=== PATIENT | female | born 1970 | race Caucasian/White ===

== ENCOUNTER 2019-01-09 09:18 | Emergency (ER) | payer OTHER ==
--- NOTE | 2019-01-09 10:29 | EDM.PDOC ---
ED HPI GENERAL MEDICAL PROBLEM - General Chief Complaint: Abdominal Pain Stated Complaint: LOWER LEFT SIDE ABD PAIN Time Seen by Provider: 01/09/19 11:00 Source of Information: Reports: Patient - History of Present Illness INITIAL COMMENTS - FREE TEXT/NARRATIVE: +48 years old female patient presented with a chief complaint of left lower quadrant abdominal pain since last Saturday. Constant. No radiation. Cramping. Waxing and waning. Associated with nausea but no vomiting. Denies any fever. Denies any diarrhea or constipation. She has some frequency and urgency. No burning with urination. Denies any blood in the urine or stool. Denies any vaginal discharge or bleeding. Denies any chest pain shortness breath. Nothing makes the pain better or worse. Left Lower Abdominal Pain Score (Numeric/FACES): 8 - Related Data Allergies Allergy/AdvReac Type Severity Reaction Status Date / Time Sulfa (Sulfonamide Allergy Rash Verified 01/09/19 10:16 Antibiotics) Home Meds: Home Meds Levothyroxine [Synthroid] 1 tab PO DAILY 01/09/19 [History] Past Medical History Cardiovascular History: Reports: Hypertension Gastrointestinal History: Reports: GERD Psychiatric History: Reports: Anxiety Endocrine/Metabolic History: Reports: Hypothyroidism - Past Surgical History HEENT Surgical History: Reports: Tonsillectomy Female Surgical History: Reports: Section Social & Family History - Tobacco Use Smoking Status *Q: Never Smoker - Recreational Drug Use Recreational Drug Use: No ED ROS GENERAL - Review of Systems Review Of Systems: ROS reveals no pertinent complaints other than HPI. ED EXAM, RENAL/ - Physical Exam Exam: See Below Exam Limited By: No Limitations General Appearance: Alert, No Apparent Distress Head: Atraumatic Neck: Normal Inspection, Supple Respiratory/Chest: No Respiratory Distress Cardiovascular: Normal Peripheral Pulses, Regular Rate, Rhythm, No Edema, No Murmur GI/Abdominal: Normal Bowel Sounds, No Organomegaly, No Distention, Other ( tenderness of the suprapubic and left lower quadrant area. No guarding no rebound.) Course - Vital Signs Last Recorded V/S: Last Vital Signs Temp 36.8 C 01/09/19 11:34 Pulse 95 01/09/19 13:37 Resp 16 01/09/19 12:50 BP 152/98 H 01/09/19 13:37 Pulse Ox 99 01/09/19 13:37 - Orders/Labs/Meds Orders: Active Orders 24 hr Category Date Time Status Cardiac Monitoring [RC] .As Directed Care 01/09/19 10:51 Active Pelvis Non OB Comp [US] Stat Exams 01/09/19 13:50 Taken Sodium Chloride 0.9% [Normal Saline] 75 ml Med 01/09/19 12:15 Active IV ASDIRECTED Medication Orders Sodium Chloride (Normal Saline) 75 mls @ 3 mls/sec IV ASDIRECTED MYRANDA Last Admin: 01/09/19 12:26 Dose: 3 mls/sec Labs: Laboratory Tests 01/09/19 01/09/19 01/09/19 Range/Units 10:31 10:54 11:04 WBC (4.5-11.0) K/uL RBC (3.30-5.50) M/uL Hgb (12.0-15.0) g/dL Hct (36.0-48.0) % MCV (80-98) fL MCH (27-31) pg MCHC (32-36) % Plt Count (150-400) K/uL Neut % (Auto) (36-66) % Lymph % (Auto) (24-44) % Collin % (Auto) (2-6) % Eos % (Auto) (2-4) % Baso % (Auto) (0-1) % Sodium 140 (140-148) mmol/L Potassium 4.3 (3.6-5.2) mmol/L Chloride 101 (100-108) mmol/L Carbon Dioxide 29 (21-32) mmol/L Anion Gap 10.1 (5.0-14.0) mmol/L BUN 13 (7-18) mg/dL Creatinine 0.8 (0.6-1.0) mg/dL Est Cr Clr Drug Dosing 73.46 mL/min Estimated GFR (MDRD) > 60 (>60) Glucose 114 H (74-106) mg/dL Calcium 9.4 (8.5-10.1) mg/dL Total Bilirubin 1.4 H (0.2-1.0) mg/dL AST 21 (15-37) U/L ALT 25 (12-78) U/L Alkaline Phosphatase 86 (46-116) U/L C-Reactive Protein 1.23 H (0.0-0.3) mg/dL Total Protein 7.8 (6.4-8.2) g/dL Albumin 4.1 (3.4-5.0) g/dL Globulin 3.7 H (2.3-3.5) g/dL Albumin/Globulin Ratio 1.1 L (1.2-2.2) Lipase (73-393) U/L Urine Color Yellow Urine Appearance Slightly cloudy Urine pH 8.0 (4.5-8.0) Ur Specific [place] 1.015 (1.008-1.030) Urine Protein Negative (NEGATIVE) mg/dL Urine Glucose (UA) Normal (NEGATIVE) mg/dL Urine Ketones Negative (NEGATIVE) mg/dL Urine Occult Blood Negative (NEGATIVE) Urine Nitrite Negative (NEGATIVE) Urine Bilirubin Negative (NEGATIVE) Urine Urobilinogen Normal (NORMAL) mg/dL Ur Leukocyte Esterase Negative (NEGATIVE) Urine RBC Not seen (0-5) Urine WBC 0-5 (0-5) Ur Epithelial Cells Few Amorphous Sediment Not seen Urine Bacteria Few Urine Mucus Many Urine HCG, Qual Negative 01/09/19 01/09/19 Range/Units 11:04 11:04 WBC 10.8 (4.5-11.0) K/uL RBC 4.81 (3.30-5.50) M/uL Hgb 14.1 (12.0-15.0) g/dL Hct 41.2 (36.0-48.0) % MCV 86 (80-98) fL MCH 29 (27-31) pg MCHC 34 (32-36) % Plt Count 197 (150-400) K/uL Neut % (Auto) 80 H (36-66) % Lymph % (Auto) 10 L (24-44) % Collin % (Auto) 9 H (2-6) % Eos % (Auto) 0 L (2-4) % Baso % (Auto) 0 (0-1) % Sodium (140-148) mmol/L Potassium (3.6-5.2) mmol/L Chloride (100-108) mmol/L Carbon Dioxide (21-32) mmol/L Anion Gap (5.0-14.0) mmol/L BUN (7-18) mg/dL Creatinine (0.6-1.0) mg/dL Est Cr Clr Drug Dosing mL/min Estimated GFR (MDRD) (>60) Glucose (74-106) mg/dL Calcium (8.5-10.1) mg/dL Total Bilirubin (0.2-1.0) mg/dL AST (15-37) U/L ALT (12-78) U/L Alkaline Phosphatase (46-116) U/L C-Reactive Protein (0.0-0.3) mg/dL Total Protein (6.4-8.2) g/dL Albumin (3.4-5.0) g/dL Globulin (2.3-3.5) g/dL Albumin/Globulin Ratio (1.2-2.2) Lipase 131 (73-393) U/L Urine Color Urine Appearance Urine pH (4.5-8.0) Ur Specific [place] (1.008-1.030) Urine Protein (NEGATIVE) mg/dL Urine Glucose (UA) (NEGATIVE) mg/dL Urine Ketones (NEGATIVE) mg/dL Urine Occult Blood (NEGATIVE) Urine Nitrite (NEGATIVE) Urine Bilirubin (NEGATIVE) Urine Urobilinogen (NORMAL) mg/dL Ur Leukocyte Esterase (NEGATIVE) Urine RBC (0-5) Urine WBC (0-5) Ur Epithelial Cells Amorphous Sediment Urine Bacteria Urine Mucus Urine HCG, Qual Meds: Medications Generic Name Dose Route Start Last Admin Trade Name Freq PRN Reason Stop Dose Admin Sodium Chloride 75 mls @ 3 mls/sec 01/09/19 12:15 01/09/19 12:26 Normal Saline IV 3 mls/sec ASDIRECTED MYRANDA Administration Discontinued Medications Generic Name Dose Route Start Last Admin Trade Name Freq PRN Reason Stop Dose Admin Sodium Chloride 1,000 mls @ 1,000 mls/hr 01/09/19 10:51 01/09/19 11:48 Normal Saline IV 01/09/19 11:50 1,000 mls/hr .BOLUS ONE Administration Iopamidol 88 ml 01/09/19 12:09 01/09/19 12:26 Isovue-300 (61%) IV 01/09/19 12:10 88 ml ONETIME ONE Administration Morphine Sulfate 4 mg 01/09/19 12:33 01/09/19 12:47 Morphine IVPUSH 01/09/19 12:34 4 mg ONETIME ONE Administration Ondansetron HCl 4 mg 01/09/19 10:54 01/09/19 13:38 Zofran IVPUSH 01/09/19 10:55 Not Given ONETIME ONE - Radiology Interpretation Free Text/Narrative:: patient was seen and examined shortly fter arrival. Stable. Given 1 L normal saline bolus. Declined pain medication at this point. Given 4 mg IV Zofran. Lab and imaging reviewed with the patient. Ultrasound shows good blood flow bilaterally. Nose no torsion. I did consulted with ATM MANAGER on-call at [facility] Dr. Little and she recommended sending the patient transfer examination to [facility] for evaluation. Patient agrees with the plan. Stable for transfer. Departure - Departure Time of Disposition: 15:34 Disposition: DC[facility] Condition: Fair Clinical Impression: Ovarian cyst - Discharge Information Referrals: PCP,None [Primary Care Provider] - Forms: ED Department Discharge - My Orders Last 24 Hours: My Active Orders 01/09/19 10:51 Cardiac Monitoring [RC] .As Directed 01/09/19 12:15 Sodium Chloride 0.9% [Normal Saline] 75 ml IV ASDIRECTED 01/09/19 13:50 Pelvis Non OB Comp [US] Stat - Assessment/Plan Last 24 Hours: My Active Orders 01/09/19 10:51 Cardiac Monitoring [RC] .As Directed 01/09/19 12:15 Sodium Chloride 0.9% [Normal Saline] 75 ml IV ASDIRECTED 01/09/19 13:50 Pelvis Non OB Comp [US] Stat Plan: patient will be transferred to [facility] to be seen by ATM MANAGER.
[2019-01-09] MEDS ORDERED: Sodium Chloride 0.9% 1,000 ML IV ONE (10:51)
[2019-01-09] MEDS ORDERED: Ondansetron 4 MG/2 ML SDV IVPUSH ONE (10:54)
[2019-01-09] MEDS ORDERED: Iopamidol 500 ML BOTTLE IV ONE (12:09)
[2019-01-09] MEDS ORDERED: Sodium Chloride 0.9% 75 ML IV SCH (12:15)
[2019-01-09] MEDS ORDERED: Morphine 2 MG/ML Syringe IVPUSH ONE (12:33)
--- NOTE | 2019-01-09 13:34 | CRLCT ---
INDICATION: Left lower quadrant abdomen pain. Suprapubic pain. TECHNIQUE: CT abdomen and pelvis acquired with 88 cc Isovue-300 IV contrast. COMPARISON: None. FINDINGS: Lower chest: Small hiatal hernia. Lung bases are clear. Liver: Unremarkable. Normal in size and attenuation. No masses. Gallbladder and bile ducts: Unremarkable. No stones or inflammation. No biliary dilatation. Pancreas: Unremarkable. No mass or inflammation. Spleen: Unremarkable. Normal in size. No masses. Adrenal glands: Unremarkable. No nodules. Kidneys: Unremarkable. No masses, stones, or hydronephrosis. GI tract: Unremarkable. Normal in caliber. No sign of mass or inflammation. Normal appendix. Vasculature: Unremarkable. Mesenteric arteries are patent. Lymph nodes: No lymphadenopathy. Omentum/Peritoneum/Abdominal Wall: Unremarkable. No sign of mass or infiltration. No free air or significant free fluid. Pelvis: Relatively large 6 cm simple cyst is emanating from the left ovary. There is a small amount of adjacent free fluid. Uterus and right ovary are unremarkable. Bones: Unremarkable for age. IMPRESSION: 1. Simple 6 cm left ovarian cyst is present with a small amount of adjacent free fluid suggesting cystic rupture. This cyst is almost certainly benign. Guidelines recommend annual follow-up ultrasound until resolution. 2. Remainder of the exam is unremarkable. Dictated by Stephon Ramos MD @ 01/09/2019 1:33:07 PM Please note that all CT scans at this facility use dose modulation, iterative reconstruction, and/or weight-based dosing when appropriate to reduce radiation dose to as low as reasonably achievable. Dictated by: Stephon Ramos MD @ 01/09/2019 13:33:12 (Electronically Signed)
--- NOTE | 2019-01-09 15:45 | CRLUS ---
INDICATION: Left pelvic pain. Left ovarian cyst. COMPARISON: CT scan of the abdomen and pelvis dated 09 January 2019. FINDINGS: A transabdominal pelvic ultrasound shows a uterus of normal size, contour, echogenicity. Normal appearance of the endometrial stripe measuring 6 mm in thickness. 6.6 x 6.6 x 5.7 cm simple cyst extending off of the left ovary. The left ovary is otherwise unremarkable and measures 6.7 x 6.7 x 6.1 cm. Normal appearance of the right ovary which measures 3.3 x 2.5 x 2.5 cm. Color and spectral Doppler analysis shows normal arterial and venous blood flow to both ovaries. Trace free fluid in the pelvis. IMPRESSION: 1. 6.6 cm left ovarian simple cyst. Recommend followup ultrasound in 3-6 months for further evaluation. 2. No other abnormalities of the uterus or ovaries identified. Dictated by Romulo Garcia MD @ 01/09/2019 3:43:16 PM Dictated by: Romulo Garcia MD @ 01/09/2019 15:44:13 (Electronically Signed)
== END 2019-01-09 16:33 | disposition designated cancer center or children's hospital (05) ==
LOC: JP.ED 09:18
DX: N83.202 Unspecified ovarian cyst, left side (principal); I10 Essential (primary) hypertension; K21.9 Gastro-esophageal reflux disease without esophagitis; Z88.2 Allergy status to sulfonamides; Z79.899 Other long term (current) drug therapy
CPT/HCPCS: 36415; 74177; 76856; 80053; 81001; 81025; 83690; 85025; 86140; 96361; 96374; 99285; J2270; J7030; J7050; Q9967